=== PATIENT | female | born 1980 | race Caucasian/White ===

== ENCOUNTER 2016-11-12 20:53 | Emergency (ER) | payer SELFPAY | END 2016-11-12 22:42 | disposition left against medical advice (07) | LOC: D.ER 20:53 | DX: R10.84 Generalized abdominal pain (principal) ==

== ENCOUNTER 2016-11-13 22:37 | Emergency (ER) | payer SELFPAY ==
[2016-11-13 23:09] LABS: APPEARANCE HAZY (CLEAR); BILIRUBIN NEGATIVE (NEGATIVE); COLOR YELLOW (YELLOW); GLUCOSE NEGATIVE (NEGATIVE); KETONE NEGATIVE (NEGATIVE); LEUKOCYTE ESTERASE TRACE (NEGATIVE); NITRITE NEGATIVE (NEGATIVE); PROTEIN TRACE mg/dL (NEGATIVE); UROBILINOGEN NORMAL (NORMAL)
[2016-11-13 23:11] LABS: BASOPHILS 0.3 % (0-2); EOSINOPHILS 2.6 % (0-7); HEMATOCRIT 40.6 % (36.0-48.0); HEMOGLOBIN 13.4 g/dL (12-16); IMMATURE GRANULOCYTES 0.2 % (0-5); LYMPHOCYTES 44.3 % (15-50); MCH 31.8 pg (26.0-34.0); MCV 96.2 fL (80.0-100.0); MEAN PLATELET VOLUME 10.1 fL (7.4-10.4); MONOCYTES 7.3 % (2-11); NEUTROPHILS 45.3 % (40-80); PLATELET COUNT 218 10x3/uL (130-400); RBC 4.22 10x6/uL (4.00-5.40); RDW 13.4 % (11.5-14.5); WBC 9.9 10x3/uL (4.8-10.8)
[2016-11-13 23:14] LABS: BACTERIA MODERATE /hpf (NONE SEEN); RED CELLS - URINE 0-5 /hpf (0-5); WHITE CELLS - URINE 0-5 /hpf (0-5)
[2016-11-13 23:40] LABS: ALBUMIN 3.8 g/dL (3.4-5.0); ALKALINE PHOSPHATASE 87 U/L (46-116); ALT (SGPT) 25 U/L (10-68); AMYLASE - SERUM 37 U/L (25-115); BILIRUBIN - TOTAL 0.45 mg/dL (0.2-1.3); CALC OSMOLALITY 289 mosm/kg (275-300); CALCIUM 9.4 mg/dL (8.5-10.1); CARBON DIOXIDE 27.4 mmol/L (21.0-32.0); CHLORIDE - SERUM 108 mmol/L (98-107); CREATININE - SERUM 0.8 mg/dL (0.6-1.3); GLUCOSE 106 mg/dL (74-106); LIPASE 167 U/L (73-393); POTASSIUM - SERUM 3.5 mmol/L (3.5-5.1); PROTEIN - SERUM 7.2 g/dL (6.4-8.2); SODIUM 145 mmol/L (136-145); UREA NITROGEN 16 mg/dL (7-18); eGFR NON AFRICAN AMERICAN 86 mL/min (90-120)
== END 2016-11-14 00:53 | disposition home or self-care (01) ==
LOC: D.ER 22:37
PROVIDERS: Emergency Medicine
DX: R10.9 Unspecified abdominal pain (principal); R11.10 Vomiting, unspecified; N80.9 Endometriosis, unspecified; F43.10 Post-traumatic stress disorder, unspecified

== ENCOUNTER 2016-11-19 19:20 | Emergency (ER) | payer SELFPAY | END 2016-11-20 00:15 | disposition left against medical advice (07) | LOC: D.ER 19:20 | DX: R05 Cough (principal) ==

== ENCOUNTER 2016-11-20 11:58 | Emergency (ER) | payer SELFPAY ==
[2016-11-20 13:06] LABS: BASOPHILS 0.3 % (0-2); EOSINOPHILS 3.6 % (0-7); HEMATOCRIT 40.6 % (36.0-48.0); HEMOGLOBIN 13.6 g/dL (12-16); IMMATURE GRANULOCYTES 0.1 % (0-5); LYMPHOCYTES 29.6 % (15-50); MCH 31.9 pg (26.0-34.0); MCHC 33.5 g/dL (31.0-37.0); MCV 95.1 fL (80.0-100.0); MEAN PLATELET VOLUME 10.4 fL (7.4-10.4); MONOCYTES 8.9 % (2-11); NEUTROPHILS 57.5 % (40-80); PLATELET COUNT 216 10x3/uL (130-400); RBC 4.27 10x6/uL (4.00-5.40); RDW 13.1 % (11.5-14.5); WBC 7.4 10x3/uL (4.8-10.8)
[2016-11-20 13:28] LABS: ALBUMIN 3.7 g/dL (3.4-5.0); ALKALINE PHOSPHATASE 83 U/L (46-116); ALT (SGPT) 22 U/L (10-68); BILIRUBIN - TOTAL 0.23 mg/dL (0.2-1.3); CALC OSMOLALITY 284 mosm/kg (275-300); CALCIUM 9.4 mg/dL (8.5-10.1); CARBON DIOXIDE 24.4 mmol/L (21.0-32.0); CHLORIDE - SERUM 110 mmol/L (98-107); CREATININE - SERUM 0.8 mg/dL (0.6-1.3); GLUCOSE 84 mg/dL (74-106); LIPASE 134 U/L (73-393); POTASSIUM - SERUM 3.5 mmol/L (3.5-5.1); SODIUM 145 mmol/L (136-145); UREA NITROGEN 5 mg/dL (7-18); eGFR NON AFRICAN AMERICAN 86 mL/min (90-120)
[2016-11-20 16:06] LABS: HCG URINE NEGATIVE (NEGATIVE)
[2016-11-20 16:08] LABS: APPEARANCE CLEAR (CLEAR); BILIRUBIN NEGATIVE (NEGATIVE); COLOR YELLOW (YELLOW); GLUCOSE NEGATIVE (NEGATIVE); KETONE NEGATIVE (NEGATIVE); LEUKOCYTE ESTERASE TRACE (NEGATIVE); NITRITE NEGATIVE (NEGATIVE); PROTEIN NEGATIVE (NEGATIVE); SPECIFIC GRAVITY 1.015 (1.005-1.020); UROBILINOGEN NORMAL (NORMAL)
[2016-11-20 16:09] LABS: BACTERIA FEW /hpf (NONE SEEN); EPITHELIAL CELLS NSEEN /hpf (0-5); MUCUS <1+ /lpf (NONE SEEN); RED CELLS - URINE NONE SEEN /hpf (0-5); WHITE CELLS - URINE 0-5 /hpf (0-5)
== END 2016-11-20 16:43 | disposition home or self-care (01) ==
LOC: D.ER 11:58
PROVIDERS: Emergency Medicine
DX: J30.9 Allergic rhinitis, unspecified (principal); K52.9 Noninfective gastroenteritis and colitis, unspecified; F43.10 Post-traumatic stress disorder, unspecified; F17.200 Nicotine dependence, unspecified, uncomplicated

== ENCOUNTER 2016-12-08 21:15 | Emergency (ER) | payer MEDICAID | END 2016-12-09 00:28 | disposition home or self-care (01) | LOC: D.ER 21:15 | DX: S80.01XA Contusion of right knee, initial encounter (principal); W19.XXXA Unspecified fall, initial encounter ==

== ENCOUNTER 2016-12-19 15:33 | Emergency (ER) | payer MEDICAID | END 2016-12-19 19:02 | disposition left against medical advice (07) | LOC: D.ER 15:33 | DX: R51 Headache (principal); W19.XXXA Unspecified fall, initial encounter; Y93.89 Activity, other specified; Y92.89 Other specified places as the place of occurrence of the external cause ==

== ENCOUNTER 2016-12-20 17:13 | Emergency (ER) | payer MEDICAID | END 2016-12-20 19:35 | disposition home or self-care (01) | LOC: D.ER 17:13 | DX: S16.1XXA Strain of muscle, fascia and tendon at neck level, initial encounter (principal); W18.00XA Striking against unspecified object with subsequent fall, initial encounter; Y93.89 Activity, other specified; Y92.89 Other specified places as the place of occurrence of the external cause; M54.5 Low back pain ==

== ENCOUNTER 2017-01-02 20:14 | Emergency (ER) | payer MEDICAID ==
[2017-01-02 21:42] LABS: APPEARANCE CLEAR (CLEAR); BILIRUBIN NEGATIVE (NEGATIVE); COLOR YELLOW (YELLOW); GLUCOSE NEGATIVE (NEGATIVE); KETONE NEGATIVE (NEGATIVE); LEUKOCYTE ESTERASE NEGATIVE (NEGATIVE); NITRITE NEGATIVE (NEGATIVE); PROTEIN NEGATIVE (NEGATIVE); SPECIFIC GRAVITY 1.025 (1.005-1.020); UROBILINOGEN NORMAL (NORMAL)
== END 2017-01-02 21:37 | disposition left against medical advice (07) ==
LOC: D.ER 20:14
PROVIDERS: Nurse Practitioner Acute Care
DX: R11.2 Nausea with vomiting, unspecified (principal); F17.200 Nicotine dependence, unspecified, uncomplicated

== ENCOUNTER 2017-01-04 17:10 | Emergency (ER) | payer MEDICAID ==
[2017-01-04 18:02] LABS: BASOPHILS 0.3 % (0-2); EOSINOPHILS 3.6 % (0-7); HEMATOCRIT 42.9 % (36.0-48.0); HEMOGLOBIN 14.4 g/dL (12-16); IMMATURE GRANULOCYTES 0.3 % (0-5); MCH 31.4 pg (26.0-34.0); MCHC 33.6 g/dL (31.0-37.0); MCV 93.7 fL (80.0-100.0); MEAN PLATELET VOLUME 10.8 fL (7.4-10.4); MONOCYTES 5.6 % (2-11); NEUTROPHILS 52.2 % (40-80); PLATELET COUNT 233 10x3/uL (130-400); RBC 4.58 10x6/uL (4.00-5.40); RDW 12.2 % (11.5-14.5); WBC 7.7 10x3/uL (4.8-10.8)
[2017-01-04 18:13] LABS: APPEARANCE HAZY (CLEAR); BACTERIA MODERATE /hpf (NONE SEEN); BILIRUBIN NEGATIVE (NEGATIVE); COLOR DK YELLOW (YELLOW); GLUCOSE NEGATIVE (NEGATIVE); KETONE NEGATIVE (NEGATIVE); LEUKOCYTE ESTERASE TRACE (NEGATIVE); MUCUS >1+ /lpf (NONE SEEN); NITRITE NEGATIVE (NEGATIVE); PH 5.5 (5.0-6.0); PROTEIN NEGATIVE (NEGATIVE); RED CELLS - URINE 0-5 /hpf (0-5); UROBILINOGEN NORMAL (NORMAL); WHITE CELLS - URINE 0-5 /hpf (0-5)
[2017-01-04 19:56] LABS: HCG SERUM NEGATIVE (NEGATIVE)
[2017-01-04 20:04] LABS: ALBUMIN 4.1 g/dL (3.4-5.0); ALKALINE PHOSPHATASE 92 U/L (46-116); ALT (SGPT) 25 U/L (10-68); BILIRUBIN - TOTAL 0.51 mg/dL (0.2-1.3); CALC OSMOLALITY 283 mosm/kg (275-300); CALCIUM 9.9 mg/dL (8.5-10.1); CARBON DIOXIDE 26.6 mmol/L (21.0-32.0); CHLORIDE - SERUM 106 mmol/L (98-107); CREATININE - SERUM 0.9 mg/dL (0.6-1.3); GLUCOSE 101 mg/dL (74-106); POTASSIUM - SERUM 4.5 mmol/L (3.5-5.1); PROTEIN - SERUM 7.9 g/dL (6.4-8.2); SODIUM 143 mmol/L (136-145); UREA NITROGEN 11 mg/dL (7-18); eGFR NON AFRICAN AMERICAN 75 mL/min (90-120)
== END 2017-01-04 21:07 | disposition home or self-care (01) ==
LOC: D.ER 17:10
PROVIDERS: Emergency Medicine; Physician Assistant
DX: R10.32 Left lower quadrant pain (principal); R11.2 Nausea with vomiting, unspecified; F43.10 Post-traumatic stress disorder, unspecified; F17.200 Nicotine dependence, unspecified, uncomplicated

== ENCOUNTER 2017-01-10 21:28 | Emergency (ER) | payer MEDICAID ==
[2017-01-10 21:59] LABS: BASOPHILS 0.2 % (0-2); EOSINOPHILS 2.6 % (0-7); HEMATOCRIT 39.7 % (36.0-48.0); HEMOGLOBIN 13.3 g/dL (12-16); IMMATURE GRANULOCYTES 0.2 % (0-5); LYMPHOCYTES 36.6 % (15-50); MCH 31.2 pg (26.0-34.0); MCHC 33.5 g/dL (31.0-37.0); MCV 93.2 fL (80.0-100.0); MEAN PLATELET VOLUME 10.6 fL (7.4-10.4); MONOCYTES 6.3 % (2-11); NEUTROPHILS 54.1 % (40-80); PLATELET COUNT 217 10x3/uL (130-400); RBC 4.26 10x6/uL (4.00-5.40); RDW 12.2 % (11.5-14.5); WBC 9.5 10x3/uL (4.8-10.8)
[2017-01-10 22:18] LABS: ALBUMIN 3.6 g/dL (3.4-5.0); ALKALINE PHOSPHATASE 96 U/L (46-116); ALT (SGPT) 14 U/L (10-68); BILIRUBIN - TOTAL 0.25 mg/dL (0.2-1.3); CALC OSMOLALITY 292 mosm/kg (275-300); CALCIUM 9.1 mg/dL (8.5-10.1); CARBON DIOXIDE 26.4 mmol/L (21.0-32.0); CHLORIDE - SERUM 112 mmol/L (98-107); CREATININE - SERUM 0.9 mg/dL (0.6-1.3); GLUCOSE 96 mg/dL (74-106); POTASSIUM - SERUM 3.4 mmol/L (3.5-5.1); PROTEIN - SERUM 6.8 g/dL (6.4-8.2); SODIUM 148 mmol/L (136-145); UREA NITROGEN 9 mg/dL (7-18); eGFR NON AFRICAN AMERICAN 75 mL/min (90-120)
[2017-01-10 22:29] LABS: CHOL - HDL RATIO 4.1 ratio (2.3-4.1); CHOLESTEROL, TOTAL 153 mg/dL (0-200); CREATINE KINASE 46 UL (21-215); HDL CHOLESTEROL 37 mg/dL (32-96); LDL CHOLESTEROL 103 mg/dL (0-100); LDL-HDL RATIO 2.8 ratio (1.5-3.5); TRIGLYCERIDE 66 mg/dL (30-200); TROPONIN-I < 0.017 ng/mL (0.000-0.060)
== END 2017-01-10 23:20 | disposition home or self-care (01) ==
LOC: D.ER 21:28
PROVIDERS: Emergency Medicine
DX: R07.9 Chest pain, unspecified (principal); R10.9 Unspecified abdominal pain; F17.200 Nicotine dependence, unspecified, uncomplicated

== ENCOUNTER 2017-01-11 17:32 | Emergency (ER) | payer MEDICAID | END 2017-01-11 19:09 | disposition home or self-care (01) | LOC: D.ER 17:32 | DX: F43.11 Post-traumatic stress disorder, acute (principal); X58.XXXA Exposure to other specified factors, initial encounter; F17.200 Nicotine dependence, unspecified, uncomplicated; R10.32 Left lower quadrant pain ==

== ENCOUNTER 2017-01-15 15:53 | Emergency (ER) | payer MEDICAID ==
[2017-01-15 17:00] LABS: BASOPHILS 0.3 % (0-2); EOSINOPHILS 1.5 % (0-7); HEMATOCRIT 44.7 % (36.0-48.0); IMMATURE GRANULOCYTES 0.2 % (0-5); LYMPHOCYTES 34.1 % (15-50); MCH 31.4 pg (26.0-34.0); MCHC 33.6 g/dL (31.0-37.0); MCV 93.5 fL (80.0-100.0); MEAN PLATELET VOLUME 10.5 fL (7.4-10.4); NEUTROPHILS 57.9 % (40-80); PLATELET COUNT 212 10x3/uL (130-400); RBC 4.78 10x6/uL (4.00-5.40); RDW 12.2 % (11.5-14.5); WBC 8.6 10x3/uL (4.8-10.8)
[2017-01-15 17:38] LABS: APPEARANCE CLEAR (CLEAR); BILIRUBIN NEGATIVE (NEGATIVE); COLOR YELLOW (YELLOW); GLUCOSE NEGATIVE (NEGATIVE); KETONE NEGATIVE (NEGATIVE); LEUKOCYTE ESTERASE NEGATIVE (NEGATIVE); NITRITE NEGATIVE (NEGATIVE); PROTEIN NEGATIVE (NEGATIVE); SPECIFIC GRAVITY 1.015 (1.005-1.020); UROBILINOGEN NORMAL (NORMAL)
[2017-01-15 18:23] LABS: ALBUMIN 4.4 g/dL (3.4-5.0); ALKALINE PHOSPHATASE 98 U/L (46-116); ALT (SGPT) 19 U/L (10-68); AMYLASE - SERUM 52 U/L (25-115); BILIRUBIN - TOTAL 0.45 mg/dL (0.2-1.3); CALC OSMOLALITY 284 mosm/kg (275-300); CALCIUM 9.6 mg/dL (8.5-10.1); CARBON DIOXIDE 26.5 mmol/L (21.0-32.0); CHLORIDE - SERUM 108 mmol/L (98-107); CREATININE - SERUM 0.7 mg/dL (0.6-1.3); GLUCOSE 97 mg/dL (74-106); LIPASE 165 U/L (73-393); POTASSIUM - SERUM 5.3 mmol/L (3.5-5.1); SODIUM 144 mmol/L (136-145); UREA NITROGEN 8 mg/dL (7-18); eGFR NON AFRICAN AMERICAN > 90 mL/min (90-120)
== END 2017-01-15 20:50 | disposition home or self-care (01) ==
LOC: D.ER 15:53
PROVIDERS: Emergency Medicine; Physician Assistant Medical
DX: R10.9 Unspecified abdominal pain (principal); F17.200 Nicotine dependence, unspecified, uncomplicated

== ENCOUNTER 2017-01-25 21:56 | Emergency (ER) | payer MEDICAID | END 2017-01-25 22:41 | disposition left against medical advice (07) | LOC: D.ER 21:56 | DX: F41.0 Panic disorder [episodic paroxysmal anxiety] (principal); F43.10 Post-traumatic stress disorder, unspecified; F17.200 Nicotine dependence, unspecified, uncomplicated ==

== ENCOUNTER 2017-02-11 01:47 | Emergency (ER) | payer MEDICAID | END 2017-02-11 04:30 | disposition home or self-care (01) | LOC: D.ER 01:47 | DX: M54.9 Dorsalgia, unspecified (principal); W19.XXXA Unspecified fall, initial encounter; Y93.89 Activity, other specified; Y92.89 Other specified places as the place of occurrence of the external cause; R51 Headache ==

== ENCOUNTER 2017-02-13 20:34 | Emergency (ER) | payer MEDICAID ==
[2017-02-13 21:11] LABS: BASOPHILS 0.2 % (0-2); HEMOGLOBIN 14.1 g/dL (12-16); IMMATURE GRANULOCYTES 0.2 % (0-5); LYMPHOCYTES 37.9 % (15-50); MCH 31.4 pg (26.0-34.0); MCHC 33.6 g/dL (31.0-37.0); MCV 93.5 fL (80.0-100.0); MEAN PLATELET VOLUME 10.2 fL (7.4-10.4); NEUTROPHILS 52.7 % (40-80); PLATELET COUNT 235 10x3/uL (130-400); RBC 4.49 10x6/uL (4.00-5.40); RDW 13.1 % (11.5-14.5)
[2017-02-13 21:27] LABS: APPEARANCE CLEAR (CLEAR); BILIRUBIN NEGATIVE (NEGATIVE); COLOR YELLOW (YELLOW); GLUCOSE NEGATIVE (NEGATIVE); KETONE NEGATIVE (NEGATIVE); LEUKOCYTE ESTERASE NEGATIVE (NEGATIVE); NITRITE NEGATIVE (NEGATIVE); PROTEIN NEGATIVE (NEGATIVE); UROBILINOGEN NORMAL (NORMAL)
[2017-02-13 21:29] LABS: ALBUMIN 4.2 g/dL (3.4-5.0); ALKALINE PHOSPHATASE 83 U/L (46-116); ALT (SGPT) 20 U/L (10-68); CALC OSMOLALITY 282 mosm/kg (275-300); CALCIUM 9.2 mg/dL (8.5-10.1); CARBON DIOXIDE 27.3 mmol/L (21.0-32.0); CHLORIDE - SERUM 106 mmol/L (98-107); CREATININE - SERUM 0.8 mg/dL (0.6-1.3); GLUCOSE 110 mg/dL (74-106); POTASSIUM - SERUM 3.9 mmol/L (3.5-5.1); PROTEIN - SERUM 7.4 g/dL (6.4-8.2); SODIUM 142 mmol/L (136-145); UREA NITROGEN 10 mg/dL (7-18); eGFR NON AFRICAN AMERICAN 86 mL/min (90-120)
[2017-02-13 21:32] LABS: UDS - AMPHET NEGATIVE QUAL (NEGATIVE); UDS - BARB NEGATIVE QUAL (NEGATIVE); UDS - BENZO POSITIVE QUAL (NEGATIVE); UDS - COCAINE NEGATIVE QUAL (NEGATIVE); UDS - METH NEGATIVE QUAL (NEGATIVE); UDS - OPIATE NEGATIVE QUAL (NEGATIVE); UDS - PCP NEGATIVE QUAL (NEGATIVE); UDS - THC NEGATIVE QUAL (NEGATIVE)
== END 2017-02-13 21:59 | disposition home or self-care (01) ==
LOC: D.ER 20:34
PROVIDERS: Emergency Medicine; Nurse Practitioner Family
DX: R10.30 Lower abdominal pain, unspecified (principal)

== ENCOUNTER 2017-03-09 18:40 | Emergency (ER) | payer MEDICAID | END 2017-03-09 19:43 | disposition home or self-care (01) | LOC: D.ER 18:40 | DX: M27.3 Alveolitis of jaws (principal); K08.89 Other specified disorders of teeth and supporting structures; F43.10 Post-traumatic stress disorder, unspecified; F17.200 Nicotine dependence, unspecified, uncomplicated ==

== ENCOUNTER 2017-03-24 17:40 | Emergency (ER) | payer MEDICAID | END 2017-03-24 20:15 | disposition left against medical advice (07) | LOC: D.ER 17:40 | DX: R51 Headache (principal) ==

== ENCOUNTER 2017-03-27 16:07 | Emergency (ER) | payer MEDICAID ==
[2017-06-17] MEDS ORDERED: HYDROCODON-ACE1 EAC7 PO (11:10)
[2017-06-18 08:38] VITALS: BMI 19.7
== END 2017-03-27 19:00 | disposition home or self-care (01) ==
LOC: D.ER 16:07
DX: S89.92XA Unspecified injury of left lower leg, initial encounter (principal); W22.8XXA Striking against or struck by other objects, initial encounter; Y93.89 Activity, other specified; Y92.029 Unspecified place in mobile home as the place of occurrence of the external cause; M25.562 Pain in left knee; F17.200 Nicotine dependence, unspecified, uncomplicated

== ENCOUNTER 2017-04-14 21:03 | Emergency (ER) | payer MEDICAID ==
[2017-04-14 21:40] LABS: BASOPHILS 0.4 % (0-2); EOSINOPHILS 1.7 % (0-7); HEMATOCRIT 39.9 % (36.0-48.0); HEMOGLOBIN 13.1 g/dL (12-16); IMMATURE GRANULOCYTES 0.1 % (0-5); LYMPHOCYTES 27.3 % (15-50); MCH 31.3 pg (26.0-34.0); MCHC 32.8 g/dL (31.0-37.0); MCV 95.2 fL (80.0-100.0); MEAN PLATELET VOLUME 9.7 fL (7.4-10.4); MONOCYTES 7.7 % (2-11); NEUTROPHILS 62.8 % (40-80); PLATELET COUNT 196 10x3/uL (130-400); RBC 4.19 10x6/uL (4.00-5.40); RDW 13.3 % (11.5-14.5); WBC 8.4 10x3/uL (4.8-10.8)
[2017-04-14 21:55] LABS: APPEARANCE CLEAR (CLEAR); COLOR YELLOW (YELLOW)
[2017-04-14 21:56] LABS: BILIRUBIN NEGATIVE (NEGATIVE); GLUCOSE NEGATIVE (NEGATIVE); KETONE NEGATIVE (NEGATIVE); NITRITE NEGATIVE (NEGATIVE); PROTEIN NEGATIVE (NEGATIVE); UROBILINOGEN NORMAL (NORMAL)
[2017-04-14 21:57] LABS: ALBUMIN 3.8 g/dL (3.4-5.0); ALKALINE PHOSPHATASE 70 U/L (46-116); ALT (SGPT) 19 U/L (10-68); BILIRUBIN - TOTAL 0.25 mg/dL (0.2-1.3); CALC OSMOLALITY 280 mosm/kg (275-300); CALCIUM 9.3 mg/dL (8.5-10.1); CARBON DIOXIDE 28.1 mmol/L (21.0-32.0); CHLORIDE - SERUM 106 mmol/L (98-107); CREATININE - SERUM 0.7 mg/dL (0.6-1.3); GLUCOSE 93 mg/dL (74-106); POTASSIUM - SERUM 3.8 mmol/L (3.5-5.1); PROTEIN - SERUM 7.3 g/dL (6.4-8.2); SODIUM 142 mmol/L (136-145); UREA NITROGEN 8 mg/dL (7-18); eGFR NON AFRICAN AMERICAN > 90 mL/min (90-120)
[2017-06-17] MEDS ORDERED: HYDROCODON-ACE1 EAC7 PO (11:10)
[2017-06-18 08:38] VITALS: BMI 19.7
== END 2017-04-14 22:26 | disposition home or self-care (01) ==
LOC: D.ER 21:03
PROVIDERS: Emergency Medicine
DX: R10.9 Unspecified abdominal pain (principal); F17.200 Nicotine dependence, unspecified, uncomplicated

== ENCOUNTER 2017-04-21 15:10 | Emergency (ER) | payer MEDICAID ==
[2017-04-21 16:21] LABS: BASOPHILS 0.3 % (0-2); HEMATOCRIT 43.2 % (36.0-48.0); HEMOGLOBIN 14.5 g/dL (12-16); IMMATURE GRANULOCYTES 0.1 % (0-5); LYMPHOCYTES 36.7 % (15-50); MCH 31.8 pg (26.0-34.0); MCHC 33.6 g/dL (31.0-37.0); MCV 94.7 fL (80.0-100.0); MONOCYTES 5.8 % (2-11); NEUTROPHILS 55.1 % (40-80); PLATELET COUNT 220 10x3/uL (130-400); RBC 4.56 10x6/uL (4.00-5.40); RDW 12.8 % (11.5-14.5); WBC 7.9 10x3/uL (4.8-10.8)
[2017-04-21 16:40] LABS: APPEARANCE CLEAR (CLEAR); BILIRUBIN NEGATIVE (NEGATIVE); COLOR YELLOW (YELLOW); GLUCOSE NEGATIVE (NEGATIVE); KETONE NEGATIVE (NEGATIVE); NITRITE NEGATIVE (NEGATIVE); PROTEIN NEGATIVE (NEGATIVE); UROBILINOGEN NORMAL (NORMAL)
[2017-04-21 16:49] LABS: ALBUMIN 4.3 g/dL (3.4-5.0); ALKALINE PHOSPHATASE 77 U/L (46-116); ALT (SGPT) 14 U/L (10-68); BILIRUBIN - TOTAL 0.46 mg/dL (0.2-1.3); CALC OSMOLALITY 286 mosm/kg (275-300); CALCIUM 9.6 mg/dL (8.5-10.1); CARBON DIOXIDE 25.7 mmol/L (21.0-32.0); CHLORIDE - SERUM 106 mmol/L (98-107); CREATININE - SERUM 0.8 mg/dL (0.6-1.3); GLUCOSE 90 mg/dL (74-106); POTASSIUM - SERUM 3.7 mmol/L (3.5-5.1); PROTEIN - SERUM 7.8 g/dL (6.4-8.2); SODIUM 144 mmol/L (136-145); UREA NITROGEN 13 mg/dL (7-18); eGFR NON AFRICAN AMERICAN 86 mL/min (90-120)
[2017-06-17] MEDS ORDERED: HYDROCODON-ACE1 EAC7 PO (11:10)
[2017-06-18 08:38] VITALS: BMI 19.7
== END 2017-04-21 17:45 | disposition home or self-care (01) ==
LOC: D.ER 15:10
PROVIDERS: Emergency Medicine
DX: R10.9 Unspecified abdominal pain (principal); R14.3 Flatulence; F17.200 Nicotine dependence, unspecified, uncomplicated

== ENCOUNTER 2017-04-23 20:15 | Emergency (ER) | payer MEDICAID ==
[2017-06-17] MEDS ORDERED: HYDROCODON-ACE1 EAC7 PO (11:10)
[2017-06-18 08:38] VITALS: BMI 19.7
== END 2017-04-23 21:42 | disposition home or self-care (01) ==
LOC: D.ER 20:15
DX: R10.9 Unspecified abdominal pain (principal); F17.200 Nicotine dependence, unspecified, uncomplicated

== ENCOUNTER 2017-04-27 23:08 | Emergency (ER) | payer MEDICAID ==
[2017-06-17] MEDS ORDERED: HYDROCODON-ACE1 EAC7 PO (11:10)
[2017-06-18 08:38] VITALS: BMI 19.7
== END 2017-04-28 00:25 | disposition left against medical advice (07) ==
LOC: D.ER 23:08
DX: R11.2 Nausea with vomiting, unspecified (principal)

== ENCOUNTER 2017-05-15 16:31 | Emergency (ER) | payer MEDICAID ==
[2017-06-17] MEDS ORDERED: HYDROCODON-ACE1 EAC7 PO (11:10)
[2017-06-18 08:38] VITALS: BMI 19.7
== END 2017-05-15 19:19 | disposition left against medical advice (07) ==
LOC: D.ER 16:31
DX: R53.1 Weakness (principal)

== ENCOUNTER 2017-05-19 22:56 | Emergency (ER) | payer MEDICAID ==
[2017-05-19 23:35] LABS: APPEARANCE CLOUDY (CLEAR); BILIRUBIN NEGATIVE (NEGATIVE); COLOR YELLOW (YELLOW); GLUCOSE NEGATIVE (NEGATIVE); KETONE NEGATIVE (NEGATIVE); NITRITE POSITIVE (NEGATIVE); PROTEIN 1+ mg/dL (NEGATIVE); SPECIFIC GRAVITY 1.015 (1.005-1.020); UROBILINOGEN NORMAL (NORMAL)
[2017-05-19 23:36] LABS: BACTERIA MANY /hpf (NONE SEEN); EPITHELIAL CELLS 0-5 /hpf (0-5); RED CELLS - URINE 0-5 /hpf (0-5)
[2017-05-20 00:12] LABS: HEMATOCRIT 41.2 % (36.0-48.0); HEMOGLOBIN 14.1 g/dL (12-16); LYMPHOCYTES 35.6 % (15-50); MCH 31.2 pg (26.0-34.0); MCHC 34.2 g/dL (31.0-37.0); MCV 91.2 fL (80.0-100.0); MEAN PLATELET VOLUME 10.3 fL (7.4-10.4); NEUTROPHILS 58.5 % (40-80); PLATELET COUNT 244 10x3/uL (130-400); RBC 4.52 10x6/uL (4.00-5.40); RDW 12.7 % (11.5-14.5); WBC 13.5 10x3/uL (4.8-10.8)
[2017-05-20 00:58] LABS: ALKALINE PHOSPHATASE 73 U/L (46-116); ALT (SGPT) 16 U/L (10-68); CALC OSMOLALITY 284 mosm/kg (275-300); CALCIUM 9.2 mg/dL (8.5-10.1); CARBON DIOXIDE 26.2 mmol/L (21.0-32.0); CHLORIDE - SERUM 107 mmol/L (98-107); CREATININE - SERUM 0.6 mg/dL (0.6-1.3); GLUCOSE 94 mg/dL (74-106); POTASSIUM - SERUM 3.5 mmol/L (3.5-5.1); PROTEIN - SERUM 7.3 g/dL (6.4-8.2); SODIUM 144 mmol/L (136-145); UREA NITROGEN 8 mg/dL (7-18); eGFR NON AFRICAN AMERICAN > 90 mL/min (90-120)
[2017-06-17] MEDS ORDERED: HYDROCODON-ACE1 EAC7 PO (11:10)
[2017-06-18 08:38] VITALS: BMI 19.7
== END 2017-05-20 01:55 | disposition home or self-care (01) ==
LOC: D.ER 22:56
PROVIDERS: Emergency Medicine
DX: N39.0 Urinary tract infection, site not specified (principal); N80.9 Endometriosis, unspecified; F17.200 Nicotine dependence, unspecified, uncomplicated

== ENCOUNTER 2017-05-22 16:34 | Emergency (ER) | payer MEDICAID ==
[2017-05-22 19:29] LABS: BASOPHILS 0.3 % (0-2); EOSINOPHILS 1.5 % (0-7); HEMATOCRIT 42.8 % (36.0-48.0); HEMOGLOBIN 14.4 g/dL (12-16); IMMATURE GRANULOCYTES 0.3 % (0-5); LYMPHOCYTES 30.3 % (15-50); MCH 31.8 pg (26.0-34.0); MCHC 33.6 g/dL (31.0-37.0); MCV 94.5 fL (80.0-100.0); MEAN PLATELET VOLUME 10.6 fL (7.4-10.4); MONOCYTES 4.1 % (2-11); NEUTROPHILS 63.5 % (40-80); PLATELET COUNT 268 10x3/uL (130-400); RBC 4.53 10x6/uL (4.00-5.40); RDW 12.3 % (11.5-14.5); WBC 11.9 10x3/uL (4.8-10.8)
[2017-05-22 19:36] LABS: APPEARANCE CLEAR (CLEAR); BILIRUBIN NEGATIVE (NEGATIVE); COLOR YELLOW (YELLOW); GLUCOSE NEGATIVE (NEGATIVE); KETONE NEGATIVE (NEGATIVE); NITRITE NEGATIVE (NEGATIVE); PROTEIN NEGATIVE (NEGATIVE); UROBILINOGEN NORMAL (NORMAL)
[2017-05-22 19:38] LABS: AMYLASE - SERUM 52 U/L (25-115); LIPASE 196 U/L (73-393)
[2017-05-22 19:43] LABS: ALBUMIN 4.1 g/dL (3.4-5.0); ALKALINE PHOSPHATASE 79 U/L (46-116); ALT (SGPT) 13 U/L (10-68); BILIRUBIN - TOTAL 0.21 mg/dL (0.2-1.3); CALC OSMOLALITY 281 mosm/kg (275-300); CALCIUM 9.3 mg/dL (8.5-10.1); CARBON DIOXIDE 26.3 mmol/L (21.0-32.0); CHLORIDE - SERUM 108 mmol/L (98-107); CREATININE - SERUM 0.6 mg/dL (0.6-1.3); GLUCOSE 91 mg/dL (74-106); POTASSIUM - SERUM 3.7 mmol/L (3.5-5.1); PROTEIN - SERUM 7.4 g/dL (6.4-8.2); SODIUM 142 mmol/L (136-145); UREA NITROGEN 9 mg/dL (7-18); eGFR NON AFRICAN AMERICAN > 90 mL/min (90-120)
[2017-06-17] MEDS ORDERED: HYDROCODON-ACE1 EAC7 PO (11:10)
[2017-06-18 08:38] VITALS: BMI 19.7
== END 2017-05-22 23:35 | disposition home or self-care (01) ==
LOC: D.ER 16:34
PROVIDERS: Emergency Medicine; Family Medicine
DX: R10.9 Unspecified abdominal pain (principal); F17.200 Nicotine dependence, unspecified, uncomplicated

== ENCOUNTER 2017-05-24 19:34 | Emergency (ER) | payer MEDICAID ==
[2017-06-17] MEDS ORDERED: HYDROCODON-ACE1 EAC7 PO (11:10)
[2017-06-18 08:38] VITALS: BMI 19.7
== END 2017-05-24 20:30 | disposition home or self-care (01) ==
LOC: D.ER 19:34
DX: R10.9 Unspecified abdominal pain (principal); N80.9 Endometriosis, unspecified; Z76.5 Malingerer [conscious simulation]; Z91.19 Patient's noncompliance with other medical treatment and regimen

== ENCOUNTER 2017-05-27 17:02 | Emergency (ER) | payer MEDICAID ==
[2017-06-17] MEDS ORDERED: HYDROCODON-ACE1 EAC7 PO (11:10)
[2017-06-18 08:38] VITALS: BMI 19.7
== END 2017-05-27 19:45 | disposition home or self-care (01) ==
LOC: D.ER 17:02
DX: J01.90 Acute sinusitis, unspecified (principal); J06.9 Acute upper respiratory infection, unspecified; J20.9 Acute bronchitis, unspecified; F17.200 Nicotine dependence, unspecified, uncomplicated

== ENCOUNTER 2017-05-31 21:00 | Emergency (ER) | payer MEDICAID ==
[2017-05-31 21:57] LABS: BASOPHILS 0.3 % (0-2); EOSINOPHILS 2.7 % (0-7); HEMATOCRIT 42.2 % (36.0-48.0); HEMOGLOBIN 14.1 g/dL (12-16); IMMATURE GRANULOCYTES 0.2 % (0-5); LYMPHOCYTES 37.2 % (15-50); MCH 31.3 pg (26.0-34.0); MCHC 33.4 g/dL (31.0-37.0); MCV 93.6 fL (80.0-100.0); MEAN PLATELET VOLUME 10.9 fL (7.4-10.4); MONOCYTES 6.5 % (2-11); NEUTROPHILS 53.1 % (40-80); RBC 4.51 10x6/uL (4.00-5.40); RDW 12.2 % (11.5-14.5)
[2017-05-31 22:08] LABS: PLATELET COUNT 193 10x3/uL (130-400)
[2017-05-31 22:11] LABS: APPEARANCE CLEAR (CLEAR); BILIRUBIN NEGATIVE (NEGATIVE); COLOR STRAW (YELLOW); GLUCOSE NEGATIVE (NEGATIVE); KETONE NEGATIVE (NEGATIVE); NITRITE NEGATIVE (NEGATIVE); PROTEIN NEGATIVE (NEGATIVE); UROBILINOGEN NORMAL (NORMAL)
[2017-06-17] MEDS ORDERED: HYDROCODON-ACE1 EAC7 PO (11:10)
[2017-06-18 08:38] VITALS: BMI 19.7
== END 2017-05-31 22:16 | disposition home or self-care (01) ==
LOC: D.ER 21:00
PROVIDERS: Emergency Medicine
DX: R10.9 Unspecified abdominal pain (principal); F17.200 Nicotine dependence, unspecified, uncomplicated

== ENCOUNTER 2017-06-13 15:47 | Emergency (ER) | payer MEDICAID ==
[2017-06-13 16:39] LABS: APPEARANCE CLEAR (CLEAR); BILIRUBIN NEGATIVE (NEGATIVE); COLOR YELLOW (YELLOW); GLUCOSE NEGATIVE (NEGATIVE); KETONE NEGATIVE (NEGATIVE); NITRITE NEGATIVE (NEGATIVE); PROTEIN NEGATIVE (NEGATIVE); UROBILINOGEN NORMAL (NORMAL)
[2017-06-13 17:24] LABS: BASOPHILS 0.1 % (0-2); EOSINOPHILS 0.6 % (0-7); HEMATOCRIT 44.3 % (36.0-48.0); IMMATURE GRANULOCYTES 0.2 % (0-5); LYMPHOCYTES 27.7 % (15-50); MCH 31.4 pg (26.0-34.0); MCHC 33.9 g/dL (31.0-37.0); MCV 92.7 fL (80.0-100.0); MEAN PLATELET VOLUME 9.7 fL (7.4-10.4); MONOCYTES 3.9 % (2-11); NEUTROPHILS 67.5 % (40-80); PLATELET COUNT 221 10x3/uL (130-400); RBC 4.78 10x6/uL (4.00-5.40); RDW 12.6 % (11.5-14.5); WBC 12.8 10x3/uL (4.8-10.8)
[2017-06-17] MEDS ORDERED: HYDROCODON-ACE1 EAC7 PO (11:10)
[2017-06-18 08:38] VITALS: BMI 19.7
== END 2017-06-13 19:00 | disposition home or self-care (01) ==
LOC: D.ER 15:47
PROVIDERS: Nurse Practitioner Family
DX: A08.4 Viral intestinal infection, unspecified (principal); R11.10 Vomiting, unspecified; R10.9 Unspecified abdominal pain; F17.200 Nicotine dependence, unspecified, uncomplicated

== ENCOUNTER 2017-06-18 05:05 | Day surgery (SDC) | payer MEDICAID ==
[2017-06-17 11:11] LABS: BASOPHILS 0.1 % (0-2); EOSINOPHILS 2.7 % (0-7); HEMATOCRIT 41.4 % (36.0-48.0); HEMOGLOBIN 13.7 g/dL (12-16); IMMATURE GRANULOCYTES 0.3 % (0-5); LYMPHOCYTES 37.1 % (15-50); MCH 30.9 pg (26.0-34.0); MCHC 33.1 g/dL (31.0-37.0); MCV 93.2 fL (80.0-100.0); MEAN PLATELET VOLUME 10.3 fL (7.4-10.4); MONOCYTES 5.8 % (2-11); PLATELET COUNT 246 10x3/uL (130-400); RBC 4.44 10x6/uL (4.00-5.40); RDW 12.6 % (11.5-14.5); WBC 8.9 10x3/uL (4.8-10.8)
[~2017-06-18] VITALS: Ht 167.6 cm; Wt 55.3 kg
[~2017-06-18 05:05] MED LIST: HYDROCODON-ACE1 EAC7 PO
[2017-06-18] MEDS ORDERED: HYDROCODONE-APA1 TAB PO (08:33)
[2017-06-18 08:38] VITALS: BP 106/62; Ht 167.6 cm; Wt 55.3 kg
[2017-06-18] MEDS ORDERED: PERCOCET 7.5/321 TAB PO (13:12)
--- NOTE | 2017-06-20 09:15 | OP ---
PATIENT NAME: VANDANA MORALES MEDICAL RECORD: [id number] :80 LOCATION:D.OPS ADMISSION DATE: SURGEON: KERRIE BARNEY MD DATE OF OPERATION: 06/18/2017 PREOPERATIVE DIAGNOSIS: Pelvic pain. POSTOPERATIVE DIAGNOSIS: Active endometriosis. PROCEDURES PERFORMED: 1. Diagnostic laparoscopy. 2. Fulguration of endometriosis. SURGEON: Kerrie Barney MD SAP ARIBA CONSULTANT: Rose Joshi. ANESTHESIOLOGIST: Dr. Donald ANESTHETIC: General. FINDINGS: Right ovary is surgically absent. There appears to be an ovarian remnant on the left side. A full ovary is not well visualized. There are some adhesions of the large bowel to the sidewall. Active endometriosis appears on the pelvic side wall. What was visualized of the abdominal anatomy is unremarkable. PATHOLOGY: None. ESTIMATED BLOOD LOSS: Minimal. FLUIDS: 750 of lactated Ringer's. URINE OUTPUT: Quantity sufficient void prior to procedure. COMPLICATIONS: None. DRAINS: None. INDICATIONS: The patient is a 36-year-old female with chronic pelvic pain and chronic pain. The patient has been evaluated in the clinic with adnexal tenderness and is consented for diagnostic laparoscopy. The patient understands risks, benefits as well as limitations of this procedure and the possible need for Lupron therapy in the future. DESCRIPTION OF PROCEDURE: After informed consent was assured, the patient was taken to the operating room where anesthetic was obtained without difficulty. The patient was prepped and draped in usual sterile fashion. The incision was made at the umbilicus to accommodate a 5-mm trocar, which was inserted without difficulty and a pneumoperitoneum developed. Accessory port was now placed in the midline. Through the midline port and with the patient in steep Trendelenburg position, a blunt probe was used to sweep the bowel from the pelvis. The above findings were found. At this point, a second port was placed in the right lower quadrant site. The endometriosis implants on the left wall were elevated and using monopolar hook they were removed and what remained OPERATIVE REPORT [id number] VANDANA MORALES desiccated. After desiccation was completed, the trocars were removed under direct visualization. The pneumoperitoneum was released and the primary trocars were removed. The skin was reapproximated. The patient was awakened and went to the recovery area in stable condition. Sponge, lap and needle counts were correct times 2. TRANSINT:[id number] Voice Confirmation ID: [id number] DOCUMENT ID: [id number] KERRIE BARNEY MD at 0915 CC: [id number] DICTATION DATE: 06/18/17 1143 LIFE SCIENTIST: 06/18/17 1201 [facility] 06/18/17 [place] [id number] [place] [id number]
== END 2017-06-18 13:45 | disposition home or self-care (01) ==
LOC: D.OPS 05:05 → D.PAN 10:30 → D.OPS 10:30 → D.PAN 06-25 12:30
PROVIDERS: Obstetrics & Gynecology
DX: N80.3 Endometriosis of pelvic peritoneum (principal); Z01.812 Encounter for preprocedural laboratory examination

== ENCOUNTER 2017-06-19 12:48 | Emergency (ER) | payer MEDICAID ==
[2017-06-18 08:38] VITALS: BMI 19.7
[~2017-06-19 12:48] MED LIST changes: +HYDROCODONE-APA1 TAB PO; +PERCOCET 7.5/321 TAB PO
[2017-06-19 15:41] LABS: BASOPHILS 0.1 % (0-2); EOSINOPHILS 1.9 % (0-7); HEMATOCRIT 40.7 % (36.0-48.0); HEMOGLOBIN 13.6 g/dL (12-16); IMMATURE GRANULOCYTES 0.1 % (0-5); LYMPHOCYTES 30.7 % (15-50); MCH 31.2 pg (26.0-34.0); MCHC 33.4 g/dL (31.0-37.0); MCV 93.3 fL (80.0-100.0); MONOCYTES 6.3 % (2-11); NEUTROPHILS 60.9 % (40-80); PLATELET COUNT 235 10x3/uL (130-400); RBC 4.36 10x6/uL (4.00-5.40); RDW 12.6 % (11.5-14.5); WBC 10.1 10x3/uL (4.8-10.8)
[2017-06-19 15:55] LABS: ALBUMIN 3.8 g/dL (3.4-5.0); ALKALINE PHOSPHATASE 93 U/L (46-116); ALT (SGPT) 30 U/L (10-68); BILIRUBIN - TOTAL 0.15 mg/dL (0.2-1.3); CALC OSMOLALITY 282 mosm/kg (275-300); CALCIUM 9.4 mg/dL (8.5-10.1); CARBON DIOXIDE 29.1 mmol/L (21.0-32.0); CHLORIDE - SERUM 104 mmol/L (98-107); CREATININE - SERUM 0.8 mg/dL (0.6-1.3); GLUCOSE 96 mg/dL (74-106); POTASSIUM - SERUM 3.8 mmol/L (3.5-5.1); PROTEIN - SERUM 7.1 g/dL (6.4-8.2); SODIUM 142 mmol/L (136-145); UREA NITROGEN 12 mg/dL (7-18); eGFR NON AFRICAN AMERICAN 86 mL/min (90-120)
[2017-06-19 15:57] LABS: APPEARANCE CLEAR (CLEAR); BILIRUBIN NEGATIVE (NEGATIVE); COLOR YELLOW (YELLOW); GLUCOSE NEGATIVE (NEGATIVE); KETONE NEGATIVE (NEGATIVE); NITRITE NEGATIVE (NEGATIVE); PROTEIN NEGATIVE (NEGATIVE); UROBILINOGEN NORMAL (NORMAL)
== END 2017-06-19 18:47 | disposition home or self-care (01) ==
LOC: D.ER 12:48
PROVIDERS: Family Medicine; Physician Assistant
DX: G89.18 Other acute postprocedural pain (principal); R11.2 Nausea with vomiting, unspecified; N80.9 Endometriosis, unspecified

== ENCOUNTER 2017-06-21 20:06 | Emergency (ER) | payer MEDICAID ==
[2017-06-18 08:38] VITALS: BMI 19.7
[2017-06-21 20:41] LABS: BASOPHILS 0.1 % (0-2); EOSINOPHILS 1.3 % (0-7); HEMATOCRIT 42.6 % (36.0-48.0); HEMOGLOBIN 14.1 g/dL (12-16); IMMATURE GRANULOCYTES 0.2 % (0-5); LYMPHOCYTES 37.6 % (15-50); MCH 31.2 pg (26.0-34.0); MCHC 33.1 g/dL (31.0-37.0); MCV 94.2 fL (80.0-100.0); MEAN PLATELET VOLUME 10.1 fL (7.4-10.4); MONOCYTES 8.2 % (2-11); NEUTROPHILS 52.6 % (40-80); PLATELET COUNT 253 10x3/uL (130-400); RBC 4.52 10x6/uL (4.00-5.40); RDW 12.6 % (11.5-14.5); WBC 10.3 10x3/uL (4.8-10.8)
[2017-06-21 20:51] LABS: APPEARANCE CLEAR (CLEAR); BILIRUBIN NEGATIVE (NEGATIVE); COLOR YELLOW (YELLOW); GLUCOSE NEGATIVE (NEGATIVE); KETONE NEGATIVE (NEGATIVE); NITRITE NEGATIVE (NEGATIVE); PROTEIN NEGATIVE (NEGATIVE); SPECIFIC GRAVITY 1.015 (1.005-1.020); UROBILINOGEN NORMAL (NORMAL)
[2017-06-21 20:52] LABS: UDS - AMPHET NEGATIVE QUAL (NEGATIVE); UDS - BARB NEGATIVE QUAL (NEGATIVE); UDS - BENZO POSITIVE QUAL (NEGATIVE); UDS - COCAINE NEGATIVE QUAL (NEGATIVE); UDS - OPIATE NEGATIVE QUAL (NEGATIVE); UDS - PCP NEGATIVE QUAL (NEGATIVE); UDS - THC NEGATIVE QUAL (NEGATIVE)
[2017-06-21 20:53] LABS: EPITHELIAL CELLS 0-5 /hpf (0-5); WHITE CELLS - URINE 0-5 /hpf (0-5)
[2017-06-21 20:56] LABS: ALKALINE PHOSPHATASE 87 U/L (46-116); ALT (SGPT) 25 U/L (10-68); BILIRUBIN - TOTAL 0.14 mg/dL (0.2-1.3); CALC OSMOLALITY 284 mosm/kg (275-300); CALCIUM 9.8 mg/dL (8.5-10.1); CARBON DIOXIDE 30.4 mmol/L (21.0-32.0); CHLORIDE - SERUM 103 mmol/L (98-107); CREATININE - SERUM 0.7 mg/dL (0.6-1.3); GLUCOSE 103 mg/dL (74-106); LIPASE 183 U/L (73-393); POTASSIUM - SERUM 3.9 mmol/L (3.5-5.1); PROTEIN - SERUM 7.6 g/dL (6.4-8.2); SODIUM 143 mmol/L (136-145); UREA NITROGEN 12 mg/dL (7-18); eGFR NON AFRICAN AMERICAN > 90 mL/min (90-120)
== END 2017-06-21 22:23 | disposition home or self-care (01) ==
LOC: D.ER 20:06
PROVIDERS: Family Medicine
DX: G89.18 Other acute postprocedural pain (principal)

== ENCOUNTER 2017-07-04 18:39 | Emergency (ER) | payer MEDICAID ==
[2017-06-18 08:38] VITALS: BMI 19.7
== END 2017-07-04 20:20 | disposition home or self-care (01) ==
LOC: D.ER 18:39
DX: S83.92XA Sprain of unspecified site of left knee, initial encounter (principal); W19.XXXA Unspecified fall, initial encounter; Y93.89 Activity, other specified; Y92.019 Unspecified place in single-family (private) house as the place of occurrence of the external cause; F17.200 Nicotine dependence, unspecified, uncomplicated

== ENCOUNTER 2017-07-08 18:14 | Emergency (ER) | payer MEDICAID ==
[2017-06-18 08:38] VITALS: BMI 19.7
== END 2017-07-08 19:35 | disposition left against medical advice (07) ==
LOC: D.ER 18:14
DX: R68.89 Other general symptoms and signs (principal)

== ENCOUNTER 2017-07-08 20:43 | Emergency (ER) | payer MEDICAID ==
[2017-06-18 08:38] VITALS: BMI 19.7
== END 2017-07-08 22:57 | disposition home or self-care (01) ==
LOC: D.ER 20:43
DX: K52.9 Noninfective gastroenteritis and colitis, unspecified (principal); J20.9 Acute bronchitis, unspecified; R42 Dizziness and giddiness; F17.200 Nicotine dependence, unspecified, uncomplicated

== ENCOUNTER 2017-07-09 17:19 | Emergency (ER) | payer MEDICAID ==
[2017-06-18 08:38] VITALS: BMI 19.7
[2017-07-09 19:02] LABS: APPEARANCE CLEAR (CLEAR); BILIRUBIN NEGATIVE (NEGATIVE); COLOR YELLOW (YELLOW); GLUCOSE NEGATIVE (NEGATIVE); KETONE NEGATIVE (NEGATIVE); NITRITE NEGATIVE (NEGATIVE); PROTEIN NEGATIVE (NEGATIVE); SPECIFIC GRAVITY 1.005 (1.005-1.020); UROBILINOGEN NORMAL (NORMAL)
[2017-07-09 19:06] LABS: BASOPHILS 0.3 % (0-2); EOSINOPHILS 2.5 % (0-7); HEMATOCRIT 40.6 % (36.0-48.0); HEMOGLOBIN 13.5 g/dL (12-16); IMMATURE GRANULOCYTES 0.2 % (0-5); LYMPHOCYTES 33.5 % (15-50); MCHC 33.3 g/dL (31.0-37.0); MCV 93.3 fL (80.0-100.0); MEAN PLATELET VOLUME 10.3 fL (7.4-10.4); MONOCYTES 6.2 % (2-11); NEUTROPHILS 57.3 % (40-80); PLATELET COUNT 224 10x3/uL (130-400); RBC 4.35 10x6/uL (4.00-5.40); RDW 12.5 % (11.5-14.5)
[2017-07-09 19:27] LABS: ALBUMIN 4.1 g/dL (3.4-5.0); ALKALINE PHOSPHATASE 74 U/L (46-116); ALT (SGPT) 22 U/L (10-68); BILIRUBIN - TOTAL 0.24 mg/dL (0.2-1.3); CALC OSMOLALITY 277 mosm/kg (275-300); CALCIUM 9.6 mg/dL (8.5-10.1); CARBON DIOXIDE 25.4 mmol/L (21.0-32.0); CHLORIDE - SERUM 106 mmol/L (98-107); CREATININE - SERUM 0.7 mg/dL (0.6-1.3); GLUCOSE 119 mg/dL (74-106); POTASSIUM - SERUM 3.7 mmol/L (3.5-5.1); PROTEIN - SERUM 6.9 g/dL (6.4-8.2); SODIUM 140 mmol/L (136-145); UREA NITROGEN 7 mg/dL (7-18); eGFR NON AFRICAN AMERICAN > 90 mL/min (90-120)
== END 2017-07-09 22:33 | disposition home or self-care (01) ==
LOC: D.ER 17:19
PROVIDERS: Emergency Medicine
DX: J20.9 Acute bronchitis, unspecified (principal); R42 Dizziness and giddiness; R30.0 Dysuria; F17.200 Nicotine dependence, unspecified, uncomplicated

== ENCOUNTER 2017-07-10 17:22 | Emergency (ER) | payer MEDICAID ==
[2017-06-18 08:38] VITALS: BMI 19.7
== END 2017-07-10 22:06 | disposition home or self-care (01) ==
LOC: D.ER 17:22
DX: M54.9 Dorsalgia, unspecified (principal); M54.2 Cervicalgia; M79.1 Myalgia; M25.50 Pain in unspecified joint; R51 Headache; Y04.2XXA Assault by strike against or bumped into by another person, initial encounter; Y93.9 Activity, unspecified; Y92.019 Unspecified place in single-family (private) house as the place of occurrence of the external cause; F17.200 Nicotine dependence, unspecified, uncomplicated

== ENCOUNTER 2017-07-15 20:37 | Emergency (ER) | payer MEDICAID ==
[2017-06-18 08:38] VITALS: BMI 19.7
[2017-07-15 22:25] LABS: BASOPHILS 0.2 % (0-2); EOSINOPHILS 3.7 % (0-7); HEMATOCRIT 43.9 % (36.0-48.0); HEMOGLOBIN 14.8 g/dL (12-16); IMMATURE GRANULOCYTES 0.1 % (0-5); LYMPHOCYTES 38.9 % (15-50); MCH 31.5 pg (26.0-34.0); MCHC 33.7 g/dL (31.0-37.0); MCV 93.4 fL (80.0-100.0); MEAN PLATELET VOLUME 10.6 fL (7.4-10.4); MONOCYTES 7.5 % (2-11); NEUTROPHILS 49.6 % (40-80); PLATELET COUNT 221 10x3/uL (130-400); RDW 12.6 % (11.5-14.5); WBC 11.9 10x3/uL (4.8-10.8)
[2017-07-15 22:37] LABS: ALBUMIN 4.3 g/dL (3.4-5.0); ALKALINE PHOSPHATASE 94 U/L (46-116); ALT (SGPT) 18 U/L (10-68); BILIRUBIN - TOTAL 0.13 mg/dL (0.2-1.3); CALC OSMOLALITY 286 mosm/kg (275-300); CALCIUM 9.7 mg/dL (8.5-10.1); CARBON DIOXIDE 28.4 mmol/L (21.0-32.0); CHLORIDE - SERUM 103 mmol/L (98-107); CREATININE - SERUM 0.9 mg/dL (0.6-1.3); GLUCOSE 112 mg/dL (74-106); POTASSIUM - SERUM 4.1 mmol/L (3.5-5.1); PROTEIN - SERUM 7.9 g/dL (6.4-8.2); SODIUM 142 mmol/L (136-145); UREA NITROGEN 21 mg/dL (7-18); eGFR NON AFRICAN AMERICAN 75 mL/min (90-120)
[2017-07-15 22:47] LABS: THYROID STIMULATING HORMONE 0.69 uIU/mL (0.36-3.74)
[2017-07-15 23:29] LABS: APPEARANCE CLEAR (CLEAR); COLOR YELLOW (YELLOW); GLUCOSE NEGATIVE (NEGATIVE); NITRITE NEGATIVE (NEGATIVE); PROTEIN NEGATIVE (NEGATIVE)
[2017-07-15 23:30] LABS: BILIRUBIN NEGATIVE (NEGATIVE); KETONE NEGATIVE (NEGATIVE); UROBILINOGEN NORMAL (NORMAL)
[2017-07-15 23:31] LABS: BACTERIA FEW /hpf (NONE SEEN); EPITHELIAL CELLS 0-5 /hpf (0-5); RED CELLS - URINE 0-5 /hpf (0-5); WHITE CELLS - URINE 0-5 /hpf (0-5)
== END 2017-07-16 00:12 | disposition home or self-care (01) ==
LOC: D.ER 20:37
PROVIDERS: Family Medicine
DX: N39.0 Urinary tract infection, site not specified (principal); K02.9 Dental caries, unspecified; M26.609 Unspecified temporomandibular joint disorder, unspecified side

== ENCOUNTER 2017-07-23 16:52 | Emergency (ER) | payer MEDICAID ==
[2017-06-18 08:38] VITALS: BMI 19.7
== END 2017-07-23 22:01 | disposition home or self-care (01) ==
LOC: D.ER 16:52
DX: M54.5 Low back pain (principal); M54.2 Cervicalgia; W19.XXXA Unspecified fall, initial encounter; Y93.89 Activity, other specified; Y92.019 Unspecified place in single-family (private) house as the place of occurrence of the external cause

== ENCOUNTER 2017-08-07 16:22 | Emergency (ER) | payer MEDICAID ==
[2017-06-18 08:38] VITALS: BMI 19.7
== END 2017-08-07 19:29 | disposition home or self-care (01) ==
LOC: D.ER 16:22
DX: K08.89 Other specified disorders of teeth and supporting structures (principal)

== ENCOUNTER 2017-08-12 13:37 | Emergency (ER) | payer MEDICAID ==
[2017-06-18 08:38] VITALS: BMI 19.7
== END 2017-08-12 15:08 | disposition home or self-care (01) ==
LOC: D.ER 13:37
DX: R10.9 Unspecified abdominal pain (principal); F17.200 Nicotine dependence, unspecified, uncomplicated

== ENCOUNTER 2017-08-15 15:00 | Emergency (ER) | payer MEDICAID ==
[2017-06-18 08:38] VITALS: BMI 19.7
[2017-08-15 15:34] LABS: BASOPHILS 0.2 % (0-2); EOSINOPHILS 2.3 % (0-7); HEMATOCRIT 40.7 % (36.0-48.0); HEMOGLOBIN 13.5 g/dL (12-16); IMMATURE GRANULOCYTES 0.1 % (0-5); LYMPHOCYTES 29.9 % (15-50); MCH 31.5 pg (26.0-34.0); MCHC 33.2 g/dL (31.0-37.0); MCV 95.1 fL (80.0-100.0); MEAN PLATELET VOLUME 9.9 fL (7.4-10.4); MONOCYTES 9.3 % (2-11); NEUTROPHILS 58.2 % (40-80); PLATELET COUNT 251 10x3/uL (130-400); RBC 4.28 10x6/uL (4.00-5.40); RDW 13.2 % (11.5-14.5); WBC 8.2 10x3/uL (4.8-10.8)
[2017-08-15 15:50] LABS: APPEARANCE CLEAR (CLEAR); BILIRUBIN NEGATIVE (NEGATIVE); COLOR YELLOW (YELLOW); GLUCOSE NEGATIVE (NEGATIVE); KETONE NEGATIVE (NEGATIVE); NITRITE NEGATIVE (NEGATIVE); PROTEIN NEGATIVE (NEGATIVE); SPECIFIC GRAVITY 1.005 (1.005-1.020); UROBILINOGEN NORMAL (NORMAL)
== END 2017-08-15 16:42 | disposition home or self-care (01) ==
LOC: D.ER 15:00
PROVIDERS: Emergency Medicine; Nurse Practitioner Family
DX: K29.00 Acute gastritis without bleeding (principal); R11.10 Vomiting, unspecified; F17.200 Nicotine dependence, unspecified, uncomplicated

== ENCOUNTER 2017-08-16 17:23 | Emergency (ER) | payer MEDICAID ==
[2017-06-18 08:38] VITALS: BMI 19.7
== END 2017-08-16 18:24 | disposition home or self-care (01) ==
LOC: D.ER 17:23
DX: K08.89 Other specified disorders of teeth and supporting structures (principal); K04.7 Periapical abscess without sinus; F17.200 Nicotine dependence, unspecified, uncomplicated

== ENCOUNTER 2017-08-21 19:11 | Emergency (ER) | payer MEDICAID ==
[2017-06-18 08:38] VITALS: BMI 19.7
== END 2017-08-21 20:30 | disposition home or self-care (01) ==
LOC: D.ER 19:11
DX: F41.0 Panic disorder [episodic paroxysmal anxiety] (principal); F41.9 Anxiety disorder, unspecified; S80.02XA Contusion of left knee, initial encounter; S30.0XXA Contusion of lower back and pelvis, initial encounter; W19.XXXA Unspecified fall, initial encounter; Y93.89 Activity, other specified; Y92.019 Unspecified place in single-family (private) house as the place of occurrence of the external cause; F17.200 Nicotine dependence, unspecified, uncomplicated

== ENCOUNTER 2017-08-26 15:11 | Emergency (ER) | payer MEDICAID ==
[2017-06-18 08:38] VITALS: BMI 19.7
== END 2017-08-26 21:00 | disposition home or self-care (01) ==
LOC: D.ER 15:11
DX: M25.552 Pain in left hip (principal); W19.XXXA Unspecified fall, initial encounter; Y93.89 Activity, other specified; Y92.019 Unspecified place in single-family (private) house as the place of occurrence of the external cause; F17.200 Nicotine dependence, unspecified, uncomplicated

== ENCOUNTER 2017-08-29 16:54 | Emergency (ER) | payer MEDICAID ==
[2017-06-18 08:38] VITALS: BMI 19.7
== END 2017-08-29 21:00 | disposition home or self-care (01) ==
LOC: D.ER 16:54
DX: F41.9 Anxiety disorder, unspecified (principal); F43.10 Post-traumatic stress disorder, unspecified; X58.XXXA Exposure to other specified factors, initial encounter; Y93.89 Activity, other specified; Y92.89 Other specified places as the place of occurrence of the external cause

== ENCOUNTER 2017-08-30 19:57 | Emergency (ER) | payer MEDICAID ==
[2017-06-18 08:38] VITALS: BMI 19.7
== END 2017-08-30 22:56 | disposition home or self-care (01) ==
LOC: D.ER 19:57
DX: R07.81 Pleurodynia (principal); Y04.8XXA Assault by other bodily force, initial encounter; Y93.89 Activity, other specified; Y92.019 Unspecified place in single-family (private) house as the place of occurrence of the external cause; F17.200 Nicotine dependence, unspecified, uncomplicated; F43.10 Post-traumatic stress disorder, unspecified

== ENCOUNTER 2017-09-03 17:28 | Emergency (ER) | payer MEDICAID ==
[2017-06-18 08:38] VITALS: BMI 19.7
== END 2017-09-03 19:33 | disposition left against medical advice (07) ==
LOC: D.ER 17:28
DX: M25.561 Pain in right knee (principal); M25.551 Pain in right hip; M25.512 Pain in left shoulder; F43.10 Post-traumatic stress disorder, unspecified; X58.XXXA Exposure to other specified factors, initial encounter; Y93.89 Activity, other specified; Y92.89 Other specified places as the place of occurrence of the external cause

== ENCOUNTER 2017-09-04 13:25 | Emergency (ER) | payer MEDICAID ==
[2017-06-18 08:38] VITALS: BMI 19.7
== END 2017-09-04 15:17 | disposition left against medical advice (07) ==
LOC: D.ER 13:25
DX: K13.79 Other lesions of oral mucosa (principal)

== ENCOUNTER 2017-09-04 18:59 | Emergency (ER) | payer MEDICAID ==
[2017-06-18 08:38] VITALS: BMI 19.7
== END 2017-09-04 20:40 | disposition home or self-care (01) ==
LOC: D.ER 18:59
DX: K05.10 Chronic gingivitis, plaque induced (principal); F43.10 Post-traumatic stress disorder, unspecified; X58.XXXA Exposure to other specified factors, initial encounter; Y93.89 Activity, other specified; Y92.89 Other specified places as the place of occurrence of the external cause; M79.1 Myalgia; F17.200 Nicotine dependence, unspecified, uncomplicated

== ENCOUNTER 2017-09-06 19:24 | Emergency (ER) | payer MEDICAID ==
[2017-06-18 08:38] VITALS: BMI 19.7
== END 2017-09-06 22:00 | disposition home or self-care (01) ==
LOC: D.ER 19:24
DX: K12.0 Recurrent oral aphthae (principal); F17.200 Nicotine dependence, unspecified, uncomplicated

== ENCOUNTER 2017-09-19 11:42 | Emergency (ER) | payer MEDICAID ==
[2017-06-18 08:38] VITALS: BMI 19.7
[2017-09-19 12:00] LABS: APPEARANCE HAZY (CLEAR); COLOR STRAW (YELLOW); GLUCOSE NEGATIVE (NEGATIVE); KETONE NEGATIVE (NEGATIVE); NITRITE NEGATIVE (NEGATIVE); PROTEIN NEGATIVE (NEGATIVE); SPECIFIC GRAVITY 1.025 (1.005-1.020); UROBILINOGEN NORMAL (NORMAL)
[2017-09-19 12:01] LABS: BILIRUBIN NEGATIVE (NEGATIVE)
[2017-09-19 12:06] LABS: BASOPHILS 0.3 % (0-2); EOSINOPHILS 1.8 % (0-7); HEMATOCRIT 41.8 % (36.0-48.0); HEMOGLOBIN 14.1 g/dL (12-16); IMMATURE GRANULOCYTES 0.2 % (0-5); LYMPHOCYTES 27.7 % (15-50); MCH 31.4 pg (26.0-34.0); MCHC 33.7 g/dL (31.0-37.0); MCV 93.1 fL (80.0-100.0); MEAN PLATELET VOLUME 10.3 fL (7.4-10.4); MONOCYTES 4.8 % (2-11); NEUTROPHILS 65.2 % (40-80); PLATELET COUNT 256 10x3/uL (130-400); RBC 4.49 10x6/uL (4.00-5.40); RDW 12.4 % (11.5-14.5); WBC 8.9 10x3/uL (4.8-10.8)
[2017-09-19 12:24] LABS: ALKALINE PHOSPHATASE 93 U/L (46-116); ALT (SGPT) 23 U/L (10-68); AMYLASE - SERUM 42 U/L (25-115); BILIRUBIN - TOTAL 0.45 mg/dL (0.2-1.3); CALC OSMOLALITY 281 mosm/kg (275-300); CALCIUM 9.7 mg/dL (8.5-10.1); CARBON DIOXIDE 27.1 mmol/L (21.0-32.0); CHLORIDE - SERUM 106 mmol/L (98-107); CREATININE - SERUM 0.8 mg/dL (0.6-1.3); GLUCOSE 106 mg/dL (74-106); LIPASE 125 U/L (73-393); POTASSIUM - SERUM 3.6 mmol/L (3.5-5.1); PROTEIN - SERUM 7.6 g/dL (6.4-8.2); SODIUM 142 mmol/L (136-145); UREA NITROGEN 10 mg/dL (7-18); eGFR NON AFRICAN AMERICAN 86 mL/min (90-120)
== END 2017-09-19 13:28 | disposition home or self-care (01) ==
LOC: D.ER 11:42
PROVIDERS: Family Medicine
DX: R10.9 Unspecified abdominal pain (principal)

== ENCOUNTER 2017-09-24 15:32 | Emergency (ER) | payer MEDICAID ==
[2017-06-18 08:38] VITALS: BMI 19.7
[2017-09-24 17:06] LABS: APPEARANCE CLEAR (CLEAR); BILIRUBIN NEGATIVE (NEGATIVE); COLOR YELLOW (YELLOW); GLUCOSE NEGATIVE (NEGATIVE); KETONE NEGATIVE (NEGATIVE); NITRITE NEGATIVE (NEGATIVE); PROTEIN NEGATIVE (NEGATIVE); SPECIFIC GRAVITY 1.005 (1.005-1.020); UROBILINOGEN NORMAL (NORMAL)
[2017-09-24 17:08] LABS: EPITHELIAL CELLS 0-5 /hpf (0-5); WHITE CELLS - URINE OCC /hpf (0-5)
== END 2017-09-24 17:38 | disposition home or self-care (01) ==
LOC: D.ER 15:32
PROVIDERS: Emergency Medicine
DX: K58.9 Irritable bowel syndrome, unspecified (principal); K59.00 Constipation, unspecified; F17.200 Nicotine dependence, unspecified, uncomplicated

== ENCOUNTER 2017-09-27 20:01 | Emergency (ER) | payer MEDICAID ==
[2017-06-18 08:38] VITALS: BMI 19.7
[2017-09-27 20:33] LABS: BASOPHILS 0.4 % (0-2); EOSINOPHILS 3.2 % (0-7); HEMATOCRIT 39.5 % (36.0-48.0); HEMOGLOBIN 13.1 g/dL (12-16); IMMATURE GRANULOCYTES 0.1 % (0-5); LYMPHOCYTES 48.5 % (15-50); MCH 31.4 pg (26.0-34.0); MCHC 33.2 g/dL (31.0-37.0); MCV 94.7 fL (80.0-100.0); MEAN PLATELET VOLUME 10.6 fL (7.4-10.4); MONOCYTES 6.2 % (2-11); NEUTROPHILS 41.6 % (40-80); PLATELET COUNT 223 10x3/uL (130-400); RBC 4.17 10x6/uL (4.00-5.40); WBC 9.1 10x3/uL (4.8-10.8)
[2017-09-27 21:14] LABS: ALBUMIN 3.6 g/dL (3.4-5.0); ALKALINE PHOSPHATASE 86 U/L (46-116); ALT (SGPT) 14 U/L (10-68); BILIRUBIN - TOTAL 0.22 mg/dL (0.2-1.3); CALC OSMOLALITY 283 mosm/kg (275-300); CALCIUM 8.6 mg/dL (8.5-10.1); CARBON DIOXIDE 29.3 mmol/L (21.0-32.0); CHLORIDE - SERUM 106 mmol/L (98-107); CREATININE - SERUM 0.9 mg/dL (0.6-1.3); GLUCOSE 78 mg/dL (74-106); POTASSIUM - SERUM 4.2 mmol/L (3.5-5.1); PROTEIN - SERUM 6.6 g/dL (6.4-8.2); SODIUM 142 mmol/L (136-145); UREA NITROGEN 18 mg/dL (7-18); eGFR NON AFRICAN AMERICAN 75 mL/min (90-120)
[2017-09-27 22:02] LABS: APPEARANCE CLEAR (CLEAR); BILIRUBIN NEGATIVE (NEGATIVE); COLOR YELLOW (YELLOW); GLUCOSE NEGATIVE (NEGATIVE); KETONE NEGATIVE (NEGATIVE); NITRITE NEGATIVE (NEGATIVE); PROTEIN NEGATIVE (NEGATIVE); UROBILINOGEN NORMAL (NORMAL)
== END 2017-09-27 21:59 | disposition left against medical advice (07) ==
LOC: D.ER 20:01
PROVIDERS: Family Medicine
DX: R10.9 Unspecified abdominal pain (principal)

== ENCOUNTER 2018-06-14 15:07 | Emergency (ER) | payer MEDICAID ==
[~2018-06-14] VITALS: Ht 167.6 cm; Wt 52.3 kg
[2018-06-14 15:18] VITALS: Ht 167.6 cm; Wt 52.3 kg
[2018-06-14] MEDS ORDERED: SYMBICORT 16010.2 GM INH (16:40)
[2018-06-14] MEDS ORDERED: VENTOLIN HFA18 GM INH (16:40)
[2018-06-14] MEDS ORDERED: DOXYCYCLINE HY100 M2 PO (16:40)
[2018-06-14 17:03] VITALS: BP 103/69
== END 2018-06-14 17:04 | disposition home or self-care (01) ==
LOC: D.ER 15:07
DX: J40 Bronchitis, not specified as acute or chronic (principal); Z87.09 Personal history of other diseases of the respiratory system; R09.89 Other specified symptoms and signs involving the circulatory and respiratory systems